=== PATIENT | male | born 1980 ===

== ENCOUNTER 2023-10-04 10:31 | Outpatient (CLI) | payer OTHER, SELFPAY ==
--- NOTE | ~2023-10-04 | MR_ITS ---
MRI of the right knee Clinical history: Traumatic derangement Technique: Coronal proton density and proton density-weighted images, sagittal proton-density and T2 fat-sat images, and axial proton-density fat-saturated images were acquired. Findings: There is evidence of prior ACL reconstruction. ACL graft is intact, though somewhat concave posteriorly. Posterior cruciate ligament is intact. Medial collateral ligament and the lateral colla teral ligament complex are intact. Popliteus tendon is intact. There is a radial tear versus post meniscectomy change at the posterior root of the medial meniscus. No lateral meniscal tear evident. There is focal high-grade chondromalacia the far medial patellar facet. 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 There i s patchy moderate to high-grade chondral malacia the medial compartment. There is mild chondromalacia of the lateral compartment. Small tricompartmental osteophytes are present. Extensor mechanism is intact. No significant joint effusion. There is a large fluid collection in the subcutaneous soft tissues at the anteromedial aspect of the knee and proximal calf, measuring approx imately 8.1 x 3.6 by at least 12.0 cm in extent. No West's cyst. Impression: 8.1 x 3.6 x 12.0 cm fluid collection in the subcutaneous soft tissues at the anteromedial aspect of t he knee and proximal calf. Likely diagnostic considerations would include hematoma versus possible Mo rel-Carla lesion. Probable radial tear of the posterior root of the medial metaphysis versus possibly postmeniscectomy change. Intact ACL graft which is mildly concave posteriorly. Correlate clinically for any signs/symptoms of the ACL graft impingement. 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 Reviewed, dictated and finalized at [facility]. Impression: 8.1 x 3.6 x 12.0 cm fluid collection in the subcutaneous soft tissues at the an teromedial aspect of the knee and proximal calf. Likely diagnostic consideratio ns would include hematoma versus possible Rosario-Carla lesion. Probable radial tear of the posterior root of the medial metaphysis versus poss ibly postmeniscectomy change. Intact ACL graft which is mildly concave posteriorly. Correlate clinically for any signs/symptoms of the ACL graft impingement. Tricompartmental degenerative change, as detailed above, worst at the femoral t rochlea and medial compartment.
== END 2023-10-04 10:32 ==
LOC: MICIMG 10:33
PROVIDERS: PCP Physician Assistant; Visit Provider Physician Assistant
DX: S83.104A Unspecified dislocation of right knee, initial encounter (principal); S89.90XA Unspecified injury of unspecified lower leg, initial encounter; X58.XXXA Exposure to other specified factors, initial encounter; M17.11 Unilateral primary osteoarthritis, right knee
CPT/HCPCS: 73721